=== PATIENT | male | born 1985 | race African-American/Black ===

== ENCOUNTER 2016-11-24 07:21 | Emergency (ER) | payer MEDICAID, OTHER ==
[~2016-11-24] VITALS: Ht 175.3 cm; Wt 64.0 kg
[2016-11-24 07:25] VITALS: BP 117/86
== END 2016-11-24 08:56 | disposition home or self-care (01) ==
LOC: ER 07:23
DX: K64.4 Residual hemorrhoidal skin tags (principal)
CPT/HCPCS: 99283